=== PATIENT | male | born 1950 | race African-American/Black ===

== ENCOUNTER 2020-02-04 20:22 | IRF | payer MEDICARE, OTHER, SELFPAY ==
--- NOTE | ~2020-02-04 | CT_ITS ---
EXAMINATION: CT brain wo con DATE: 02/08/2020 09:19 INDICATION: Intracerebral hemorrhage. Stroke. TECHNIQUE: Computed tomography (CT) of the head was performed without intravenous contrast. The mA wa s adjusted according to patient size. Iterative reconstruction technique was employed. The dose-lengt h product was 681.00 mGy-cm. COMPARISON: None FINDINGS: There is a 2.0 cm hyperdense mass in right occipital lobe with surrounding vasogenic edema. There is no acute ischemic infarct. The ventricles are normal in size. There is an old blowout fract ure of medial wall of right orbit. There are old fracture deformities of the nasal bones. The mastoid air cells are normal. IMPRESSION: 1. Hyperdense mass in right occipital lobe, most likely an intraparenchymal hematoma. Reviewed, dictated and finalized at location A. IMPRESSION: 1. Hyperdense mass in right occipital lobe, most likely an intraparenchymal hem atoma.
[2020-02-04 20:20] VITALS: BP 137/70; PULSE 65; RESP 20; TEMP 36.4; O2SAT 100; BMI 43.4
[2020-02-04 20:49] LABS: Glucose Point of Care 170 (65-105)
--- NOTE | 2020-02-04 20:50 | ADMGEN ---
This patient, Hai Lemus, was admitted to [facility] Room 224-02 at 20:20. Patient/family oriented to hospital policies and general routines including ID bracelet, bed and alarms, visiting hours, pain management, procedures, bathroom and other care routines, personal items, smoking policy, room service/diet, and visiting hours. Valuables list has been completed. Information on how to activate the Rapid Response Team has been discussed. Patient/Family are encouraged to report perceived risks to care and to ask questions if they do not understand what they are told or what they should do.
[2020-02-04 22:00] VITALS: BP 142/70; PULSE 70; RESP 20; TEMP 36.5; O2SAT 99
[2020-02-05] VITALS (8 sets, daily range): BP systolic 106–129; BP diastolic 57–76; PULSE 63–72; RESP 18–20; TEMP 36.4–36.6; O2SAT 97–100; BMI 43.4
[2020-02-05 05:12] LABS: Basophils Absolute Auto 0.1 K/mm3 (0.0-0.1); Basophils Percent Auto 0.6 % (0.2-1.2); Eosinophils Absolute Auto 0.2 K/mm3 (0-0.3); Eosinophils Percent Auto 1.8 % (0-4.4); Hematocrit 34.5 % (42.0-52.0); Hemoglobin 11.4 g/dL (14.0-18.0); Immature Granulocyte Absolute 0.04 K/mm3 (0.00-0.031); Immature Granulocyte Percent A 0.5 % (0-0.5); Lymphocytes Absolute Auto 3.02 K/mm3 (0.9-3.2); Mean Corpuscular Hemoglobin 31.7 pg (26-34); Mean Corpuscular Volume 95.8 fl (80-100); Mean Platelet Volume 9.5 fl (7.4-10.4); Monocytes Absolute Auto 0.8 K/mm3 (0.1-0.6); Monocytes Percent Auto 9.2 % (2.6-8.5); Neutrophils Absolute Auto 4.2 K/mm3 (1.3-6.7); Neutrophils Percent Auto 50.9 % (45.5-73.1); Platelet Count Result 253 k/mm3 (150-375); Red Cell Distribution Width 12.1 % (11.5-14.5); White Blood Count 8.2 K/mm3 (4.5-10.0)
[2020-02-05 05:21] LABS: Hemoglobin A1C 5.8 % (<5.7)
[2020-02-05 05:23] LABS: Anion Gap 7 mmol/L (8-16); Blood Urea Nitrogen 22 mg/dL (9-20); Calcium 9.4 mg/dL (8.4-10.2); Carbon Dioxide 25 mmol/L (22-30); Chloride 104 mmol/L (98-107); Cholesterol 159 mg/dL (0-200); Estimated CRCL calculation 83 ml/min; Estimated Glomerular Filt Rate > 60; Glucose 131 mg/dL (75-110); HDL Direct 43 mg/dL; Potassium 4.3 mmol/L (3.4-5.0); Sodium 136 mmol/L (137-145); Triglycerides 110 mg/dL (<150)
[2020-02-05 05:34] LABS: LDL Cholesterol Direct 81 mg/dL
[2020-02-05 07:31] LABS: Glucose Point of Care 145 (65-105)
[2020-02-05] MEDS: ATORVASTATIN 40 MG TABLET PO (08:48)
[2020-02-05] MEDS: metFORMIN HCL 500 MG TABLET 1000 MG PO ×2 (08:48→18:50)
[2020-02-05] MEDS: ASPIRIN 325 MG TABLET PO (08:48)
[2020-02-05] MEDS: COLCHICINE 0.6 MG TABLET PO (08:49)
[2020-02-05] MEDS: FEBUXOSTAT 40 MG TABLET PO (08:49)
[2020-02-05] MEDS: lisinopriL 20 MG TABLET PO (08:50)
[2020-02-05] MEDS: SENNOSIDES 8.6 MG TABLET PO ×2 (08:50→18:50)
[2020-02-05] MEDS: DICLOFENAC SODIUM 1% 100 GM GEL (*BKC) 1 APPLIC TOPICAL ×3 (08:51→18:53)
[2020-02-05] MEDS: CHOLECALCIFEROL 1,000 UNIT TABLET 2000 UNITS PO (08:53)
[2020-02-05] MEDS: IPRATROPIUM BR 0.02% INH SOLN 0.5 MG/2.5 ML VIAL INHALATION ×2 (10:17→21:35)
--- NOTE | 2020-02-05 10:54 | WPDREHABHP ---
H&P: HPI History of Present Illness Date/Time: dictating the admission history and physical examination on Mr. Allan Valles patient's primary rehab diagnosis is a stroke with etiological diagnosis of right occipital lobe hemorrhage patient was seen [id number] on 04 of February 8:10 a.m. history and physical examination 69 years old male with past medical history of bilateral lower extremity DVT and PE, diabetes mellitus type 2 chronic obstructive pulmonary disease doubt an arthritis presented 2 [facility] on February 19, 2020 for evaluation of 2 day history of blurred vision and right supra orbital headache 10/10 is starting around 6:00 a.m. on the day of presentation and continue to worsen throughout the morning EMS transported the patient to the ER and route the patient's blood pressure was elevated to 182/89 with no history of hypertension CT of the head revealed 2.1cm right occipital intraparenchymal hemorrhage INR was 2.4 he was given 2units of fresh frozen plasma and vitamin K 5 mg intravenously x2 he was transferred to [facility] for further evaluation neurology was consulted he was started on lisinopril and continued on home medications: January 31, 2020 an IVC filter was placed as patient will not be able to be anticoagulated due to the brain bleed. He passed his bedside swallowing test and was placed on a regular consistency diabetic diet. TTE showed mild apical anterolateral hypokinesis and mild left atrial enlargement ejection fraction 68% brain MRI revealed a stable right occipital intraparenchymal bleed without abnormal vascularity of follow-up MRI is to be repeated at the resolution of hematoma hematology was consulted due to the patient's 3 prior unprovoked clotting events most recently in 2018 hematology recommended keeping the patient on indefinite anticoagulation therapy there is Eliquis 2.5 mg twice a day the old Flick recommended removing the IVC filter after anticoagulation has been restarted due to the risk of further thrombus formation a loop recorder will be placed prior to discharge patient is awake alert oriented x4 physical examination continues to reveal left-sided weakness decreased gross motor control impaired balance he was discharged to the rehab on subcutaneous heparin for DVT prophylaxis the patient has no travel outside the [place] or head contact with someone who is who is ill that his travel outside the [place] the patient has no travel to an area of the [place] there is experiencing no transmission of the Coronavirus and has not had close personal contact with anyone that has the patient does not have fever is not experiencing lower respiratory illness symptoms that therapy was initiated at the acute care facility and the patient was transferred to [facility] from [facility] on February 04, 2020 surgery or falls patient has had no major surgeries in the 100 days prior to admission and has had no falls in the past year patient has had no falls with the injury in the past year 10:54 past medical history consistent with arthritis COPD diabetic hyperosmolar nonketotic state Andres go pulmonary embolus diabetes mellitus type 2 dyslipidemia thrombophilia and morbid obesity past surgical history none social history former smoker quit 2 years ago with drinking 13 years ago no illicit drug use the patient lives in a 2 story house with his roommate patient is 5 steps to enter in 20 stairs between the 1st and 2nd floor the patient was completely independent Viviane with no assistive device family history is positive for the stroke x2 in the father and myocardial infarctions in the mother prior level of function eating was independent oral care was independent toileting hygiene was independent showering breathing was independent upper body was independent and lower body with independent for Viera was independent reporting left and right was independent sitting to lying was independent lying to sitting with independent [id number] indepe
[2020-02-05 11:52] LABS: Glucose Point of Care 121 (65-105)
--- NOTE | 2020-02-05 15:30 | PCCCNOTE ---
On 02/05/20, the student, [Hector Lovell ], provided care and completed [facility] documentation on this patient. I have reviewed the student's documentation and agree with the findings.
--- NOTE | 2020-02-05 15:41 | RPD ---
INDIVIDUALIZED PLAN OF CARE FOR Hai Lemus Brief Synthesis of Pre-Admission Screen, Post-Admission Evaluation and Therapy Evaluations: The patient presents to rehab with a right occipital lobe hemorrhage. Comorbidities include hypertension, anemia, hyponatremia, right knee osteoarthritis with pain, diabetes mellitus with hyperglycemia, dyslipidemia, thrombophilia, morbid obesity, chronic obstructive pulmonary disease, and gout. The complexity of the patient's medical management, nursing, and therapy needs require an inpatient rehab hospital stay with a physician-led interdisciplinary team approach. The patient?s needs will be best met in an intensive program vs. at a lower level of care. The patient requires physician services for neurology services, coordination of care, and medical oversight with monitoring and treatment of new hypertension, diabetes, coagulopathy, monitoring for adverse reactions to new medications, monitoring for infection, and pain control. The patient requires nursing services for frequent neuro checks, anticoagulation therapy, medication management and education, pressure relief and skin care management, monitoring of labs, diabetes management and education, and fall/safety precautions. Deficits include:ADLs, Balance, Cognition, Endurance, Family Training/Education, Mobility, Pain Management, ROM, Safety, Speech, Strength, and Transfers Machinist Apprentice Wood/Case Management for: Discharge Planning and Patient/Family Counseling Physical Therapy: 5 days per week for 75 minutes. Treatments may include: Therapeutic Exercise, Gait Training, Neuromuscular Re-education, Transfer Training, Community Reintegration, Bed Mobility, Patient/Family Education, Wheelchair Mobility Group Therapy/Concurrent Therapy Rationales: -Improve attention span during functional activities in a distracted environment. -Enhance problem solving and/or adequate judgment skills during functional activities in a distracted environment. -Promote increased safety awareness in a distracted environment to reduce fall risk with functional tasks, transfers, and ambulation to allow a more safe, self-sufficient return to the home environment. -Improve dynamic balance skills to promote safety and independence with functional activities in a distracted environment for maximum gain. Occupational Therapy: 5 days per week for 75 minutes. Treatments may include: Therapeutic Exercise, Therapeutic Activity, Cognitive Training, Self-Care Transfer Training, Community Reintegration, Home Management, Patient/Family Education, Wheelchair Mobility Training, Energy Conservation Training Group Therapy/Concurrent Therapy Rationales: -Allow therapist to observe and teach generalization and carry-over of skills learned in individual therapy. -Enhance problem solving and sequencing skills during therapeutic activities in a distracted environment. -Promote increased safety awareness in a realistic setting to reduce fall risk with functional tasks due to visual and verbal distractions. -Increase functional level with ADLs, ADL transfers and use of adaptive equipment through therapeutic activities with others while promoting safety to allow a more safe, self-sufficient return home. Speech Therapy: 5 days per week for 30 minutes. Treatments may include: Dysphasia Therapy, Speech/Language/Communication Therapy, Cognitive Training, Patient/Family Education Group Therapy/Concurrent Therapy - Rationale: -Allow therapist to observe and teach generalization and carry-over of skills learned in individual therapy. -Improve comprehension skills with complex or abstract ideas through discussion in a realistic setting. -Enhance problem solving skills with complex issues during activities in a distracted environment. -Promote increased memory skills and concentration in a distracted environment for a safe transition home. -Improve attention and focus with language/communication skills in a realistic and supportive therape
[2020-02-05 19:13] LABS: Glucose Point of Care 211 (65-105)
[2020-02-05 21:43] LABS: Glucose Point of Care 131 (65-105)
[2020-02-06 05:29] LABS: Glucose Point of Care 136 (65-105)
[2020-02-06 06:00] VITALS: BP 129/88; PULSE 59; RESP 18; TEMP 36.1; O2SAT 97
[2020-02-06] MEDS: metFORMIN HCL 500 MG TABLET 1000 MG PO ×2 (08:00→17:00)
[2020-02-06] MEDS: DICLOFENAC SODIUM 1% 100 GM GEL (*BKC) 1 APPLIC TOPICAL ×2 (08:00→12:20)
[2020-02-06] MEDS: CHOLECALCIFEROL 1,000 UNIT TABLET 2000 UNITS PO (09:00)
[2020-02-06] MEDS: ASPIRIN 325 MG TABLET PO (09:23)
[2020-02-06] MEDS: lisinopriL 20 MG TABLET PO (09:23)
[2020-02-06] MEDS: ATORVASTATIN 40 MG TABLET PO (09:23)
[2020-02-06] MEDS: COLCHICINE 0.6 MG TABLET PO (09:23)
[2020-02-06] MEDS: FEBUXOSTAT 40 MG TABLET PO (09:24)
[2020-02-06] MEDS: SENNOSIDES 8.6 MG TABLET PO ×2 (09:24→17:00)
[2020-02-06] MEDS: IPRATROPIUM BR 0.02% INH SOLN 0.5 MG/2.5 ML VIAL INHALATION ×2 (09:30→20:43)
[2020-02-06 09:31] VITALS: O2SAT 96
[2020-02-06 09:32] VITALS: PULSE 68; RESP 18
[2020-02-06 12:22] LABS: Glucose Point of Care 108 (65-105)
[2020-02-06 14:00] VITALS: BP 135/60; PULSE 66; RESP 16; TEMP 36.1; O2SAT 97
[2020-02-06 17:17] LABS: Glucose Point of Care 88 (65-105)
[2020-02-06 20:43] VITALS: PULSE 65; RESP 18; O2SAT 98
--- NOTE | 2020-02-06 20:58 | PC.NURSE ---
spoke with Dr. Fuentes office and nurse from [place] both making sure follow up head CT is ordered for sunday, order was placed with Dr. Bradshaw's ok, . phone number is [phone], I spoke with Emma at the office. Will need to follow up after CT is done to confirm where films should be sent
[2020-02-06 21:52] VITALS: BP 123/79; PULSE 69; RESP 18; TEMP 35.6; O2SAT 99
[2020-02-07] VITALS (8 sets, daily range): BP systolic 111–142; BP diastolic 55–59; PULSE 60–109; RESP 18–20; TEMP 35.8–36.8; O2SAT 97–100
[2020-02-07 06:50] LABS: Glucose Point of Care 104 (65-105)
[2020-02-07] MEDS: IPRATROPIUM BR 0.02% INH SOLN 0.5 MG/2.5 ML VIAL INHALATION ×2 (09:10→20:28)
[2020-02-07] MEDS: LIDOCAINE 5% PATCH 1 PATCH TRANSDERM (09:17)
[2020-02-07] MEDS: ASPIRIN 325 MG TABLET PO (09:18)
[2020-02-07] MEDS: metFORMIN HCL 500 MG TABLET 1000 MG PO ×2 (09:18→17:51)
[2020-02-07] MEDS: lisinopriL 20 MG TABLET PO (09:19)
[2020-02-07] MEDS: ATORVASTATIN 40 MG TABLET PO (09:19)
[2020-02-07] MEDS: COLCHICINE 0.6 MG TABLET PO (09:19)
[2020-02-07] MEDS: FEBUXOSTAT 40 MG TABLET PO (09:19)
[2020-02-07] MEDS: CHOLECALCIFEROL 1,000 UNIT TABLET 2000 UNITS PO (09:19)
[2020-02-07] MEDS: SENNOSIDES 8.6 MG TABLET PO ×2 (09:20→17:51)
[2020-02-07 12:05] LABS: Glucose Point of Care 97 (65-105)
--- NOTE | 2020-02-07 13:53 | WPDNEURORHBP ---
Subjective Date/time seen: 02/07/20 13:53 69 years old admitted to the rehab floor with a right occipital hemorrhage and 80 [place] to the history of bilateral lower extremity DVT and pulmonary emboli requiring warfarin in 2017 also history of diabetes mellitus type 2 chronic obstructive pulmonary disease gout and arthritis Review of Systems Review of Systems: All systems reviewed & are unremarkable except as noted in HPI and below Functional Status Ambulation Ability Ability to Ambulate 10 Feet: Standby Assistance Ability to Ambulate 50 Feet With 2 Turns: Contact Guard Ability to Ambulate 150 Feet: Contact Guard Ambulation Assistive Devices: Walker, Wheeled Transfers Ability Ability to Transfer In/Out of Chair: Standby Assistance Exam Narrative: Exam Narrative: examination today revealed him to be awake alert cooperative in comfortable in no acute distress ear nose throat examination normal neck is supple with no cervical bruits or thyromegaly no lymphadenopathy heart regular with no murmur lungs clear to auscultation with no crepitation abdomen is soft with normal bowel sounds neurological examination revealed him to be left hemiparetic with hyperreflexia extremities are normal and his psych examination is grossly normal Objective Data Vital Signs Vital Signs: Vital Signs - 24 hr 02/06/20 14:00 02/06/20 20:43 02/06/20 21:52 Temperature 36.1 C L 35.6 C L Pulse Rate 66 65 69 Respiratory Rate 16 18 18 Blood Pressure 135/60 123/79 Pulse Oximetry 97 98 99 02/07/20 05:54 02/07/20 09:10 02/07/20 09:20 Temperature 35.8 C L Pulse Rate 60 68 68 Respiratory Rate 18 18 18 Blood Pressure 111/55 L Pulse Oximetry 100 Intake/Output Intake/Output: Intake & Output 02/04/20 02/05/20 02/06/20 02/07/20 23:59 23:59 23:59 23:59 Intake Total 720 960 480 Balance 720 960 480 Meds/Results Medications: Active Medications Generic Name Dose Route Start Last Admin Trade Name Freq PRN Reason Stop Dose Admin Acetaminophen 650 mg 02/04/20 22:43 Tylenol Tablet PO Q4H PRN Fever Or Pain Aspirin 325 mg 02/05/20 09:00 02/07/20 09:18 Aspirin PO 325 mg DAILY [facility] Administration Atorvastatin Calcium 40 mg 02/05/20 09:00 02/07/20 09:19 Lipitor PO 40 mg DAILY [facility] Administration Colchicine 0.6 mg 02/05/20 09:00 02/07/20 09:19 Colchicine Po PO 0.6 mg DAILY [facility] Administration Febuxostat 40 mg 02/05/20 09:00 02/07/20 09:19 Uloric PO 03/06/20 09:01 40 mg DAILY [facility] Administration Dextrose 1,000 mls @ 100 mls/hr 02/04/20 22:38 Dextrose 5% 1,000 Ml IVPB PRN PRN Hypoglycemia Protocol Insulin Aspart 2 - 5 units 02/05/20 08:00 02/07/20 12:09 Novolog SUB-Q Not Given TIDWM [facility] Protocol Ipratropium [place] 0.5 mg 02/05/20 20:00 02/07/20 09:10 Atrovent Neb INHALATION 0.5 mg Q12HRT [facility] Administration Lidocaine 1 patch 02/07/20 09:00 02/07/20 09:17 Lidoderm TRANSDERM 1 patch DAILY [facility] Administration Lisinopril 20 mg 02/05/20 09:00 02/07/20 09:19 Prinivil PO 20 mg DAILY [facility] Administration Metformin HCl 1,000 mg 02/05/20 08:00 02/07/20 09:18 Glucophage PO 1,000 mg BIDWM [facility] Administration Senna 8.6 mg 02/05/20 09:00 02/07/20 09:20 Senokot Tablet PO 8.6 mg BID [facility] Administration Vitamin D 2,000 unit 02/05/20 09:00 02/07/20 09:19 Vitamin D PO 2,000 units DAILY CONCH[facility] Administration Labs Labs: Laboratory Results - last 24 hr 02/06/20 02/07/20 02/07/20 17:14 06:28 12:03 POC Capillary Glucose 88 104 97 Progress Note: A&P Assessment and Plan (1) Arthritis due to gout: Code(s): M10.9 - Gout, unspecified Status: Acute (2) Chronic obstructive pulmonary disease: Code(s): J44.9 - Chronic obstructive pulmonary disease, unspecified Status: Acute (3) Diabetes mellitus type 2 in nonobese: Code(s): E11.9 - Type 2 diabetes bertha
[2020-02-07] MEDS: MAG HYDROX/AL HYDROX/SIMETH 30 ML UDC PO (21:40)
[2020-02-08] VITALS (8 sets, daily range): BP systolic 109–148; BP diastolic 51–82; PULSE 57–84; RESP 18–20; TEMP 35.6–36.8; O2SAT 91–98
[2020-02-08 06:46] LABS: Glucose Point of Care 122 (65-105)
[2020-02-08] MEDS: metFORMIN HCL 500 MG TABLET 1000 MG PO ×2 (08:41→17:28)
[2020-02-08] MEDS: CHOLECALCIFEROL 1,000 UNIT TABLET 2000 UNITS PO (08:41)
[2020-02-08] MEDS: ASPIRIN 325 MG TABLET PO (08:41)
[2020-02-08] MEDS: ATORVASTATIN 40 MG TABLET PO (08:41)
[2020-02-08] MEDS: COLCHICINE 0.6 MG TABLET PO (08:41)
[2020-02-08] MEDS: FEBUXOSTAT 40 MG TABLET PO (08:42)
[2020-02-08] MEDS: SENNOSIDES 8.6 MG TABLET PO (08:42)
[2020-02-08] MEDS: LIDOCAINE 5% PATCH 1 PATCH TRANSDERM (08:42)
[2020-02-08] MEDS: lisinopriL 20 MG TABLET PO (08:42)
[2020-02-08] MEDS: IPRATROPIUM BR 0.02% INH SOLN 0.5 MG/2.5 ML VIAL INHALATION ×2 (09:02→18:59)
[2020-02-09] VITALS (9 sets, daily range): BP systolic 113–128; BP diastolic 56–68; PULSE 57–82; RESP 18–20; TEMP 36.4–36.8; O2SAT 94–100
[2020-02-09 06:12] LABS: Glucose Point of Care 105 (65-105)
[2020-02-09] MEDS: LIDOCAINE 5% PATCH 1 PATCH TRANSDERM (09:04)
[2020-02-09] MEDS: metFORMIN HCL 500 MG TABLET 1000 MG PO ×2 (09:04→16:05)
[2020-02-09] MEDS: CHOLECALCIFEROL 1,000 UNIT TABLET 2000 UNITS PO (09:05)
[2020-02-09] MEDS: ATORVASTATIN 40 MG TABLET PO (09:05)
[2020-02-09] MEDS: ASPIRIN 325 MG TABLET PO (09:05)
[2020-02-09] MEDS: COLCHICINE 0.6 MG TABLET PO (09:06)
[2020-02-09] MEDS: FEBUXOSTAT 40 MG TABLET PO (09:06)
[2020-02-09] MEDS: lisinopriL 20 MG TABLET PO (09:06)
[2020-02-09] MEDS: IPRATROPIUM BR 0.02% INH SOLN 0.5 MG/2.5 ML VIAL INHALATION ×2 (09:19→20:29)
--- NOTE | 2020-02-09 12:59 | PCOTNOTE ---
Will Lemusradha was evaluated for a safety with tub transfer and bathing by this occupational therapist. He will benefit from use of a tub seat with back, grab bars, and hand held shower to improve independence and safety with bathing. The tub seat with back, grab bars, and hand held shower will resolve patient's bathing limitations. Patient is unable to tolerate standing for completion of shower due to impaired balance and endurance due to recent CVA complicated by h/o DM, HLD, gout, OA, COPD, and bilateral LE DVT with PE s/p IVC filter. The use of tub seat with back, grab bars, and hand held shower will allow patient to safely and independently complete tub transfer and bathing. I agree with and certify that the above recommendation is medically necessary. Referring Physician Date
--- NOTE | 2020-02-09 13:19 | WPDNEURORHBP ---
Subjective Date/time seen: 02/09/20 13:19 Interval history: this 69-year-old gentleman is here after having had the right-sided parieto-occipital hemorrhage the CT scan performed yesterday shows evidence of the hemorrhage with some edema however clinically the patient is doing remarkably well denies any headache nausea vomiting chest pain shortness of breath or any evidence of the more weakness which is increased than previously of course he does have some visual defect on the left side which is expected and mild weakness which is improving on the left side Review of Systems Review of Systems: All systems reviewed & are unremarkable except as noted in HPI and below Functional Status Ambulation Ability Ability to Ambulate 10 Feet: Independent Ability to Ambulate 50 Feet With 2 Turns: Independent Ability to Ambulate 150 Feet: Standby Assistance Ambulation Assistive Devices: Walker, Wheeled Transfers Ability Ability to Transfer In/Out of Chair: Independent Exam Const: General: comfortable and no acute distress HENMT: General nose exam: Normal nares present Mouth: Yes moist mucous membranes Eyes: General: appearance normal, both eyes and all related structures Other: left-sided visual field defect Neck: Neck: supple and no JVD Resp: Effort & Inspection: normal respiratory effort Auscultation: clear to auscultation bilaterally Cardio: Rate: regular rate Rhythm: regular rhythm GI: GI Palp: Yes Soft to palpation Auscultation: normal bowel sounds Skin: General skin exam: normal color and no rashes or lesions noted Neuro: Other: patient is awake alert well oriented time place and person perfectly lucid with left-sided visual field defect and improving left-sided weakness Extrem: General: normal to inspection Psych: Mental Status: mental status grossly normal Objective Data Vital Signs Vital Signs: Vital Signs - 24 hr 02/08/20 14:00 02/08/20 18:59 02/08/20 19:01 Temperature 36.6 C Pulse Rate 69 78 Respiratory Rate 18 18 Blood Pressure 148/82 H Pulse Oximetry 98 94 02/08/20 19:06 02/08/20 22:00 02/09/20 06:00 Temperature 36.8 C 36.8 C Pulse Rate 80 64 60 Respiratory Rate 18 20 20 Blood Pressure 116/62 113/56 L Pulse Oximetry 98 96 02/09/20 08:50 02/09/20 09:15 02/09/20 09:21 Temperature Pulse Rate 82 82 Respiratory Rate 18 18 Blood Pressure Pulse Oximetry 94 94 02/09/20 09:25 Temperature Pulse Rate 82 Respiratory Rate 18 Blood Pressure Pulse Oximetry Intake/Output Intake/Output: Intake & Output 02/06/20 02/07/20 02/08/20 02/09/20 23:59 23:59 23:59 23:59 Intake Total 960 720 600 480 Balance 960 720 600 480 Meds/Results Medications: Active Medications Generic Name Dose Route Start Last Admin Trade Name Freq PRN Reason Stop Dose Admin Acetaminophen 650 mg 02/04/20 22:43 Tylenol Tablet PO Q4H PRN Fever Or Pain Al Hydrox/Mg Hydrox/Simethicone 30 ml 02/07/20 21:23 02/07/20 21:40 Mylanta PO 30 ml Q6H PRN Administration Indigestion Aspirin 325 mg 02/05/20 09:00 02/09/20 09:05 Aspirin PO 325 mg DAILY [facility]CH[facility] Administration Atorvastatin Calcium 40 mg 02/05/20 09:00 02/09/20 09:05 Lipitor PO 40 mg DAILY [facility] Administration Colchicine 0.6 mg 02/05/20 09:00 02/09/20 09:06 Colchicine Po PO 0.6 mg DAILY [facility] Administration Febuxostat 40 mg 02/05/20 09:00 02/09/20 09:06 Uloric PO 03/06/20 09:01 40 mg DAILY [facility] Administration Dextrose 1,000 mls @ 100 mls/hr 02/04/20 22:38 Dextrose 5% 1,000 Ml IVPB PRN PRN Hypoglycemia Protocol Ipratropium [place] 0.5 mg 02/05/20 20:00 02/09/20 09:19 Atrovent Neb INHALATION 0.5 mg Q12HRT [facility] Administration Lidocaine 1 patch 02/07/20 09:00 02/09/20 09:04 Lidoderm TRANSDERM 1 patch DAILY [facility] Administration Lisinopril 20 mg 02/05/20 09:00 02/09/20 09:06 Prinivil PO 20 mg DAILY CONCHIS Administratio
--- NOTE | 2020-02-09 21:57 | PC.NURSE ---
Addendum entered by Kenzie Tilley RN 02/10/20 10:58: Contacted [facility] for CT comparison based on their request for repeat CT scan on 02/07. Apparently patient had CT scan at [place] [facility] and was seen by Dr. Deja Tsai, neurologist branch mechanic. He was later admitted to the [facility] at [phone] for treatment. I stated that in order to restart his Eliquis (per Tr instructions) their CT scan and our CT scan would need to be compared for differences/similarities by Dr. Liu, per her request. Tr stated they would call me to inform me how Dr. Liu would like to collaborate on this matter to finalize their instructions regarding restarting Eliquis. Original Note: Contacted [facility] and
[2020-02-10] VITALS (8 sets, daily range): BP systolic 126–136; BP diastolic 71–79; PULSE 66–76; RESP 18–22; TEMP 36.2–36.5; O2SAT 94–99
[2020-02-10 06:39] LABS: Glucose Point of Care 108 (65-105)
[2020-02-10] MEDS: LIDOCAINE 5% PATCH 1 PATCH TRANSDERM (08:17)
[2020-02-10] MEDS: metFORMIN HCL 500 MG TABLET 1000 MG PO ×2 (08:17→16:35)
[2020-02-10] MEDS: CHOLECALCIFEROL 1,000 UNIT TABLET 2000 UNITS PO (08:18)
[2020-02-10] MEDS: COLCHICINE 0.6 MG TABLET PO (08:18)
[2020-02-10] MEDS: ASPIRIN 325 MG TABLET PO (08:18)
[2020-02-10] MEDS: ATORVASTATIN 40 MG TABLET PO (08:18)
[2020-02-10] MEDS: SENNOSIDES 8.6 MG TABLET PO (08:19)
[2020-02-10] MEDS: lisinopriL 20 MG TABLET PO (08:19)
[2020-02-10] MEDS: FEBUXOSTAT 40 MG TABLET PO (08:19)
--- NOTE | 2020-02-10 10:43 | PCPTNOTE ---
Hai Lemus was evaluated for a wheeled walker on 02/10/2020 by this physical therapist. The wheeled walker will resolve patient's mobility limitations and will be used for ADL's within the home. The patient can safely use the wheeled walker. ?The wheeled walker will resolve the patient?s mobility deficits, including transfers/gait/ADL's. Maribeth Cespedes PT
--- NOTE | 2020-02-10 11:03 | PC.NURSE ---
Called [facility] at [phone] regarding information/update on patient's CT scan from 02/07. [place] stated there was a note to Dr. Zuleta to review information and to contact us with instructions on how to proceed regarding restarting Eliquis.
--- NOTE | 2020-02-10 13:06 | WPDNEURORHBP ---
Subjective Date/time seen: 02/10/20 13:06 Interval history: this 69-year-old gentleman is here after having had the right parieto-occipital intraparenchymal am hemorrhage he looks great in spite of the fact that he did have the the hemorrhage in the brain denies any headache nausea vomiting chest pain or shortness of breath apparently it was a combination of Coumadin therapy for his DVT in the legs and the lungs as he described for which the Coumadin is used and recommendation from the tertiary care facility is to start him on Eliquis and the next day to the recent CT scan does show evidence of the hematoma which probably is the same at least looking at the by clinical examination Review of Systems Review of Systems: All systems reviewed & are unremarkable except as noted in HPI and below Functional Status Ambulation Ability Ability to Ambulate 10 Feet: Independent Ability to Ambulate 50 Feet With 2 Turns: Independent Ability to Ambulate 150 Feet: Independent Ambulation Assistive Devices: Walker, Wheeled Transfers Ability Ability to Transfer In/Out of Chair: Independent Exam Const: General: comfortable and no acute distress HENMT: General nose exam: Normal nares present Mouth: Yes moist mucous membranes Eyes: General: appearance normal, both eyes and all related structures Neck: Neck: supple and no JVD Resp: Effort & Inspection: normal respiratory effort Auscultation: clear to auscultation bilaterally Cardio: Rate: regular rate Rhythm: regular rhythm GI: GI Palp: Yes Soft to palpation Auscultation: normal bowel sounds Skin: General skin exam: normal color and no rashes or lesions noted Neuro: Other: patient is awake alert well oriented not in distress does have a left-sided visual field defect and left-sided weakness and higher level balance problem but considering that he had the intracranial hemorrhage is doing very well still needing assistance in the activities of daily living Extrem: General: normal to inspection Psych: Mental Status: mental status grossly normal Objective Data Vital Signs Vital Signs: Vital Signs - 24 hr 02/09/20 14:00 02/09/20 20:29 02/09/20 20:30 Temperature 36.4 C Pulse Rate 68 78 Respiratory Rate 20 18 Blood Pressure 128/58 L Pulse Oximetry 100 96 02/09/20 20:40 02/10/20 06:00 02/10/20 08:22 Temperature 36.4 C L 36.5 C Pulse Rate 57 L 73 72 Respiratory Rate 18 22 H 22 H Blood Pressure 123/68 126/77 Pulse Oximetry 98 96 96 02/10/20 09:15 02/10/20 09:44 Temperature Pulse Rate 70 76 Respiratory Rate 20 20 Blood Pressure Pulse Oximetry Intake/Output Intake/Output: Intake & Output 02/07/20 02/08/20 02/09/20 02/10/20 23:59 23:59 23:59 23:59 Intake Total 720 600 720 480 Balance 720 600 720 480 Meds/Results Medications: Active Medications Generic Name Dose Route Start Last Admin Trade Name Freq PRN Reason Stop Dose Admin Acetaminophen 650 mg 02/04/20 22:43 Tylenol Tablet PO Q4H PRN Fever Or Pain Al Hydrox/Mg Hydrox/Simethicone 30 ml 02/07/20 21:23 02/07/20 21:40 Mylanta PO 30 ml Q6H PRN Administration Indigestion Aspirin 325 mg 02/05/20 09:00 02/10/20 08:18 Aspirin PO 325 mg DAILY [facility] Administration Atorvastatin Calcium 40 mg 02/05/20 09:00 02/10/20 08:18 Lipitor PO 40 mg DAILY [facility] Administration Colchicine 0.6 mg 02/05/20 09:00 02/10/20 08:18 Colchicine Po PO 0.6 mg DAILY [facility] Administration Febuxostat 40 mg 02/05/20 09:00 02/10/20 08:19 Uloric PO 03/06/20 09:01 40 mg DAILY [facility] Administration Dextrose 1,000 mls @ 100 mls/hr 02/04/20 22:38 Dextrose 5% 1,000 Ml IVPB PRN PRN Hypoglycemia Protocol Ipratropium [place] 0.5 mg 02/05/20 20:00 02/09/20 20:29 Atrovent Neb INHALATION 0.5 mg Q12HRT [facility] Administration Lidocaine 1 patch 02/07/20 09:00 02/10/20 08:17 Lidoderm TRANSDERM 1 patch DAILY [facility] Administration
[2020-02-10] MEDS: IPRATROPIUM BR 0.02% INH SOLN 0.5 MG/2.5 ML VIAL INHALATION ×2 (20:00→20:31)
[2020-02-11] VITALS (8 sets, daily range): BP systolic 105–132; BP diastolic 66–81; PULSE 57–78; RESP 16–22; TEMP 36.2–36.5; O2SAT 95–99
[2020-02-11 07:03] LABS: Glucose Point of Care 107 (65-105)
[2020-02-11] MEDS: IPRATROPIUM BR 0.02% INH SOLN 0.5 MG/2.5 ML VIAL INHALATION ×2 (08:19→21:03)
[2020-02-11] MEDS: ATORVASTATIN 40 MG TABLET PO (09:04)
[2020-02-11] MEDS: ASPIRIN 325 MG TABLET PO (09:04)
[2020-02-11] MEDS: metFORMIN HCL 500 MG TABLET 1000 MG PO ×2 (09:04→17:12)
[2020-02-11] MEDS: FEBUXOSTAT 40 MG TABLET PO (09:05)
[2020-02-11] MEDS: CHOLECALCIFEROL 1,000 UNIT TABLET 2000 UNITS PO (09:05)
[2020-02-11] MEDS: COLCHICINE 0.6 MG TABLET PO (09:05)
[2020-02-11] MEDS: lisinopriL 20 MG TABLET PO (09:05)
[2020-02-11] MEDS: LIDOCAINE 5% PATCH 1 PATCH TRANSDERM (09:06)
--- NOTE | 2020-02-11 12:52 | WPDNEURORHBP ---
Subjective Date/time seen: 02/11/20 12:52 Interval history: this 69-year-old is here status post a right-sided intracranial hemorrhage denies any headache nausea vomiting chest pain shortness of breath the patient was supposed to have been started on Eliquis and we will start it and will discontinue his aspirin he knows the risk in the benefits and making progress significant in over rehab program in fact clinically has never shown and a huge deficit from the intracranial hemorrhage he has had Review of Systems Review of Systems: All systems reviewed & are unremarkable except as noted in HPI and below Functional Status Ambulation Ability Ability to Ambulate 10 Feet: Independent Ability to Ambulate 50 Feet With 2 Turns: Independent Ability to Ambulate 150 Feet: Independent Ambulation Assistive Devices: Walker, Wheeled Transfers Ability Ability to Transfer In/Out of Chair: Independent Exam Const: General: comfortable and no acute distress HENMT: General nose exam: Normal nares present Mouth: Yes moist mucous membranes Eyes: General: appearance normal, both eyes and all related structures Neck: Neck: supple and no JVD Resp: Effort & Inspection: normal respiratory effort Auscultation: clear to auscultation bilaterally Cardio: Rate: regular rate Rhythm: regular rhythm GI: GI Palp: Yes Soft to palpation Auscultation: normal bowel sounds Skin: General skin exam: normal color and no rashes or lesions noted Neuro: Other: patient is awake alert well oriented has a subtle left-sided weakness needing assistance in the activities of daily living and also left-sided visual field defect which is stable or in fact has improved to a certain extent Extrem: General: normal to inspection Psych: Mental Status: mental status grossly normal Objective Data Vital Signs Vital Signs: Vital Signs - 24 hr 02/10/20 14:00 02/10/20 20:12 02/10/20 20:32 Temperature 36.2 C L 36.4 C Pulse Rate 66 75 74 Respiratory Rate 20 18 18 Blood Pressure 133/71 136/79 Pulse Oximetry 99 97 94 02/10/20 20:38 02/11/20 05:20 02/11/20 08:21 Temperature 36.4 C L Pulse Rate 66 57 L 72 Respiratory Rate 18 20 18 Blood Pressure 105/66 Pulse Oximetry 98 02/11/20 08:28 02/11/20 08:30 Temperature Pulse Rate 78 72 Respiratory Rate 18 Blood Pressure Pulse Oximetry 95 Intake/Output Intake/Output: Intake & Output 08/16/20 08/17/20 08/18/20 08/19/20 23:59 23:59 23:59 23:59 Intake Total 480 152 1061 240 Balance 016 931 5315 240 Meds/Results Medications: Active Medications Generic Name Dose Route Start Last Admin Trade Name Freq PRN Reason Stop Dose Admin Acetaminophen 650 mg 02/04/20 22:43 Tylenol Tablet PO Q4H PRN Fever Or Pain Al Hydrox/Mg Hydrox/Simethicone 30 ml 02/07/20 21:23 02/07/20 21:40 Mylanta PO 30 ml Q6H PRN Administration Indigestion Apixaban 2.5 mg 02/11/20 21:00 Eliquis PO Q12HR [facility] Atorvastatin Calcium 40 mg 02/05/20 09:00 02/11/20 09:04 Lipitor PO 40 mg DAILY [facility] Administration Colchicine 0.6 mg 02/05/20 09:00 02/11/20 09:05 Colchicine Po PO 0.6 mg DAILY [facility] Administration Febuxostat 40 mg 02/05/20 09:00 02/11/20 09:05 Uloric PO 03/06/20 09:01 40 mg DAILY [facility] Administration Dextrose 1,000 mls @ 100 mls/hr 02/04/20 22:38 Dextrose 5% 1,000 Ml IVPB PRN PRN Hypoglycemia Protocol Ipratropium [place] 0.5 mg 02/05/20 20:00 02/11/20 08:19 Atrovent Neb INHALATION 0.5 mg Q12HRT [facility] Administration Lidocaine 1 patch 02/07/20 09:00 02/11/20 09:06 Lidoderm TRANSDERM 1 patch DAILY [facility] Administration Lisinopril 20 mg 02/05/20 09:00 02/11/20 09:05 Prinivil PO 20 mg DAILY [facility] Administration Metformin HCl 1,000 mg 02/05/20 08:00 02/11/20 09:04 Glucophage PO 1,000 mg BIDWM [facility] Administration Senna 8.6 mg 02/08/20 17:30 02/10/20 08:19 Senokot Tablet PO 8.6
--- NOTE | 2020-02-11 17:13 | PC.NURSE ---
pt wanted only 500mg on the metformin and he states that what his doctor had decreased his dose to. I will call Dr. Mcduffie and let him know and possibly decrease if ordered.
[2020-02-11] MEDS: APIXABAN 2.5 MG TABLET PO (21:36)
[2020-02-12] VITALS (7 sets, daily range): BP systolic 102–123; BP diastolic 51–66; PULSE 64–70; RESP 12–18; TEMP 36.2–36.6; O2SAT 96–100
[2020-02-12 05:35] LABS: Basophils Absolute Auto 0.1 K/mm3 (0.0-0.1); Basophils Percent Auto 0.7 % (0.2-1.2); Eosinophils Absolute Auto 0.2 K/mm3 (0-0.3); Eosinophils Percent Auto 2.6 % (0-4.4); Hematocrit 35.2 % (42.0-52.0); Hemoglobin 11.7 g/dL (14.0-18.0); Immature Granulocyte Absolute 0.05 K/mm3 (0.00-0.031); Immature Granulocyte Percent A 0.6 % (0-0.5); Lymphocytes Absolute Auto 3.59 K/mm3 (0.9-3.2); Lymphocytes Percent Auto 44.3 % (18.3-44.2); Mean Corpuscular HGB Conc 33.2 g/dl (32-36); Mean Corpuscular Hemoglobin 31.9 pg (26-34); Mean Corpuscular Volume 95.9 fl (80-100); Mean Platelet Volume 9.1 fl (7.4-10.4); Monocytes Absolute Auto 0.8 K/mm3 (0.1-0.6); Monocytes Percent Auto 9.8 % (2.6-8.5); Neutrophils Absolute Auto 3.4 K/mm3 (1.3-6.7); Platelet Count Result 348 k/mm3 (150-375); Red Blood Count 3.67 M/mm3 (4.6-6.20); Red Cell Distribution Width 11.9 % (11.5-14.5); White Blood Count 8.1 K/mm3 (4.5-10.0)
[2020-02-12 05:49] LABS: Anion Gap 9 mmol/L (8-16); Blood Urea Nitrogen 21 mg/dL (9-20); Calcium 9.5 mg/dL (8.4-10.2); Carbon Dioxide 26 mmol/L (22-30); Chloride 101 mmol/L (98-107); Estimated CRCL calculation 83 ml/min; Estimated Glomerular Filt Rate > 60; Glucose 109 mg/dL (75-110); Potassium 4.1 mmol/L (3.4-5.0); Sodium 136 mmol/L (137-145)
[2020-02-12 07:02] LABS: Glucose Point of Care 161 (65-105)
[2020-02-12] MEDS: IPRATROPIUM BR 0.02% INH SOLN 0.5 MG/2.5 ML VIAL INHALATION ×2 (07:44→21:00)
[2020-02-12] MEDS: metFORMIN HCL 500 MG TABLET PO ×2 (09:17→17:25)
[2020-02-12] MEDS: LIDOCAINE 5% PATCH 1 PATCH TRANSDERM (09:18)
[2020-02-12] MEDS: ATORVASTATIN 40 MG TABLET PO (09:18)
[2020-02-12] MEDS: APIXABAN 2.5 MG TABLET PO ×2 (09:18→20:26)
[2020-02-12] MEDS: CHOLECALCIFEROL 1,000 UNIT TABLET 2000 UNITS PO (09:18)
[2020-02-12] MEDS: lisinopriL 20 MG TABLET PO (09:19)
[2020-02-12] MEDS: COLCHICINE 0.6 MG TABLET PO (09:19)
[2020-02-12] MEDS: FEBUXOSTAT 40 MG TABLET PO (09:19)
--- NOTE | 2020-02-12 13:00 | PCDIET ---
Nutrition Follow-Up Complete: Nutrition Diagnosis: Obesity related to excessive energy intake nursing home as evidenced by BMI of 43.5.. Nutrition Goal: Patient to consume 75% of meals or greater. Goal met. Patient consuming 100% of most meals on diabetic, carbohydrate controlled diet. Recommend long-term addition of heart healthy diet, as well. Last recorded weight is 141.5 kg. Recommend obtaining new weight. Bowel Motility: +BM today. Labs Reviewed: Hgb (11.7), Hct (35.2), Glu (161), Na (136) Meds Noted: Colchicine, Glucophage, Atrovent, Senna, Vitamin D Additional Notes: Glucophage dose adjusted. No documented skin breakdown. Will continue to monitor with same goal. Nutrition Monitoring and Evaluation: Follow up in 7 days.
[2020-02-13] VITALS (7 sets, daily range): BP systolic 109–135; BP diastolic 64–82; PULSE 63–77; RESP 16–18; TEMP 36.4–36.7; O2SAT 98–99
[2020-02-13 07:02] LABS: Glucose Point of Care 121 (65-105)
[2020-02-13] MEDS: metFORMIN HCL 500 MG TABLET PO ×2 (09:16→16:18)
[2020-02-13] MEDS: CHOLECALCIFEROL 1,000 UNIT TABLET 2000 UNITS PO (09:17)
[2020-02-13] MEDS: lisinopriL 20 MG TABLET PO (09:17)
[2020-02-13] MEDS: APIXABAN 2.5 MG TABLET PO ×2 (09:17→20:18)
[2020-02-13] MEDS: COLCHICINE 0.6 MG TABLET PO (09:17)
[2020-02-13] MEDS: FEBUXOSTAT 40 MG TABLET PO (09:17)
[2020-02-13] MEDS: ATORVASTATIN 40 MG TABLET PO (09:17)
[2020-02-13] MEDS: IPRATROPIUM BR 0.02% INH SOLN 0.5 MG/2.5 ML VIAL INHALATION ×2 (09:45→21:03)
[2020-02-13] MEDS: LIDOCAINE 5% PATCH 1 PATCH TRANSDERM (12:19)
--- NOTE | 2020-02-13 13:47 | PCCCNOTE ---
On 02/13/20, the student, [Hector Lovell ], provided care and completed [facility] documentation on this patient. I have reviewed the student's documentation and agree with the findings.
--- NOTE | 2020-02-13 14:34 | WPDNEURORHBP ---
Subjective Date/time seen: 69 years old admitted to the hospital with a right-sided intracranial hemorrhage in the rehab floor continuing on Eliquis without aspirin the review of systems is completely unremarkable except as noted in the admission history and physical [id number]/21/20 14:34 Functional Status Ambulation Ability Ability to Ambulate 10 Feet: Independent Ability to Ambulate 50 Feet With 2 Turns: Independent Ability to Ambulate 150 Feet: Independent Ambulation Assistive Devices: Walker, Wheeled Transfers Ability Ability to Transfer In/Out of Chair: Independent Exam Narrative: Exam Narrative: examination revealed him to be awake alert cooperative in no obvious acute distress ear nose throat examination is normal without any drainage from the nose or the mouth and the daughter general normal appearance of both eyes neck supple with no meningeal signs no cervical bruit heart regular with no murmur lungs clear to auscultation with no crepitations no rhonchi abdomen is soft with no organomegaly neurological is awake alert oriented has obvious left-sided weakness with left-sided visual field cut and psychologically normal Objective Data Vital Signs Vital Signs: Vital Signs - 24 hr 02/12/20 20:30 02/12/20 21:00 02/12/20 21:07 Temperature 36.6 C Pulse Rate 67 64 67 Respiratory Rate 18 18 18 Blood Pressure 110/59 L Pulse Oximetry 100 02/13/20 05:25 02/13/20 08:00 02/13/20 09:45 Temperature 36.6 C Pulse Rate 70 67 68 Respiratory Rate 18 18 18 Blood Pressure 109/66 Pulse Oximetry 98 98 02/13/20 09:54 Temperature Pulse Rate 67 Respiratory Rate 18 Blood Pressure Pulse Oximetry Intake/Output Intake/Output: Intake & Output 02/10/20 02/11/20 02/12/20 02/13/20 23:59 23:59 23:59 23:59 Intake Total 1440 720 960 600 Balance 1440 720 960 600 Meds/Results Medications: Active Medications Generic Name Dose Route Start Last Admin Trade Name Freq PRN Reason Stop Dose Admin Acetaminophen 650 mg 02/04/20 22:43 Tylenol Tablet PO Q4H PRN Fever Or Pain Al Hydrox/Mg Hydrox/Simethicone 30 ml 02/07/20 21:23 02/07/20 21:40 Mylanta PO 30 ml Q6H PRN Administration Indigestion Apixaban 2.5 mg 02/11/20 21:00 02/13/20 09:17 Eliquis PO 2.5 mg Q12HR [facility] Administration Atorvastatin Calcium 40 mg 02/05/20 09:00 02/13/20 09:17 Lipitor PO 40 mg DAILY [facility] Administration Colchicine 0.6 mg 02/05/20 09:00 02/13/20 09:17 Colchicine Po PO 0.6 mg DAILY [facility] Administration Febuxostat 40 mg 02/05/20 09:00 02/13/20 09:17 Uloric PO 03/06/20 09:01 40 mg DAILY [facility] Administration Dextrose 1,000 mls @ 100 mls/hr 02/04/20 22:38 Dextrose 5% 1,000 Ml IVPB PRN PRN Hypoglycemia Protocol Ipratropium [place] 0.5 mg 02/05/20 20:00 02/13/20 09:45 Atrovent Neb INHALATION 0.5 mg Q12HRT [facility] Administration Lidocaine 1 patch 02/07/20 09:00 02/13/20 12:19 Lidoderm TRANSDERM 1 patch DAILY [facility] Administration Lisinopril 20 mg 02/05/20 09:00 02/13/20 09:17 Prinivil PO 20 mg DAILY [facility] Administration Metformin HCl 500 mg 02/12/20 08:00 02/13/20 09:16 Glucophage PO 500 mg BIDWM [facility] Administration Senna 8.6 mg 02/08/20 17:30 02/10/20 08:19 Senokot Tablet PO 8.6 mg BID PRN Administration Constipation Vitamin D 2,000 unit 02/05/20 09:00 02/13/20 09:17 Vitamin D PO 2,000 units DAILY [facility] Administration Radiology Results: ITS Impressions Head CT 02/08/20 09:21 IMPRESSION: 1. Hyperdense mass in right occipital lobe, most likely an intraparenchymal hematoma. 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
--- NOTE | 2020-02-13 15:30 | PCCCNOTE ---
On 02/13/20, the student, [Hector Lovell ], provided care and completed [facility] documentation on this patient. I have reviewed the student's documentation and agree with the findings.
[2020-02-14] VITALS (7 sets, daily range): BP systolic 121–138; BP diastolic 66–74; PULSE 60–76; RESP 16–18; TEMP 36.2–36.6; O2SAT 92–100
[2020-02-14 06:26] LABS: Glucose Point of Care 120 (65-105)
[2020-02-14] MEDS: IPRATROPIUM BR 0.02% INH SOLN 0.5 MG/2.5 ML VIAL INHALATION ×2 (08:00→21:48)
[2020-02-14] MEDS: ATORVASTATIN 40 MG TABLET PO (08:35)
[2020-02-14] MEDS: metFORMIN HCL 500 MG TABLET PO ×2 (08:35→16:53)
[2020-02-14] MEDS: CHOLECALCIFEROL 1,000 UNIT TABLET 2000 UNITS PO (08:35)
[2020-02-14] MEDS: LIDOCAINE 5% PATCH 1 PATCH TRANSDERM (08:35)
[2020-02-14] MEDS: FEBUXOSTAT 40 MG TABLET PO (08:35)
[2020-02-14] MEDS: APIXABAN 2.5 MG TABLET PO ×2 (08:35→20:19)
[2020-02-14] MEDS: COLCHICINE 0.6 MG TABLET PO (08:35)
[2020-02-14] MEDS: lisinopriL 20 MG TABLET PO (08:36)
--- NOTE | 2020-02-14 16:29 | WPDNEURORHBP ---
Subjective Date/time seen: 02/14/20 16:29 Interval history: this 69-year-old gentleman is here with right parieto-occipital intraparenchymal hemorrhage his doing fairly well tolerating the low-dose Eliquis denies any headache nausea vomiting chest pain shortness of breath is left-sided signs are improving quite a bit Review of Systems Review of Systems: All systems reviewed & are unremarkable except as noted in HPI and below Functional Status Ambulation Ability Ability to Ambulate 10 Feet: Independent Ability to Ambulate 50 Feet With 2 Turns: Independent Ability to Ambulate 150 Feet: Independent Ambulation Assistive Devices: Walker, Wheeled Transfers Ability Ability to Transfer In/Out of Chair: Independent Exam Const: General: comfortable and no acute distress HENMT: General nose exam: Normal nares present Mouth: Yes moist mucous membranes Eyes: General: appearance normal, both eyes and all related structures Neck: Neck: supple and no JVD Resp: Effort & Inspection: normal respiratory effort Auscultation: clear to auscultation bilaterally Cardio: Rate: regular rate Rhythm: regular rhythm GI: GI Palp: Yes Soft to palpation Auscultation: normal bowel sounds Skin: General skin exam: normal color and no rashes or lesions noted Neuro: Other: patient is awake and alert with normal speech and language function and improving left-sided neurological deficits Extrem: General: normal to inspection Psych: Mental Status: mental status grossly normal Objective Data Vital Signs Vital Signs: Vital Signs - 24 hr 02/13/20 21:03 02/13/20 22:00 02/14/20 06:00 Temperature 36.4 C 36.2 C L Pulse Rate 64 63 60 Respiratory Rate 16 18 18 Blood Pressure 135/64 121/72 Pulse Oximetry 99 92 02/14/20 08:00 02/14/20 08:09 02/14/20 14:00 Temperature 36.5 C Pulse Rate 60 60 76 Respiratory Rate 16 16 18 Blood Pressure 138/66 Pulse Oximetry 100 Intake/Output Intake/Output: Intake & Output 02/11/20 02/12/20 02/13/20 02/14/20 23:59 23:59 23:59 23:59 Intake Total 720 960 840 480 Balance 720 960 840 480 Meds/Results Medications: Active Medications Generic Name Dose Route Start Last Admin Trade Name Freq PRN Reason Stop Dose Admin Acetaminophen 650 mg 02/04/20 22:43 Tylenol Tablet PO Q4H PRN Fever Or Pain Al Hydrox/Mg Hydrox/Simethicone 30 ml 02/07/20 21:23 02/07/20 21:40 Mylanta PO 30 ml Q6H PRN Administration Indigestion Apixaban 2.5 mg 02/11/20 21:00 02/14/20 08:35 Eliquis PO 2.5 mg Q12HR [facility] Administration Atorvastatin Calcium 40 mg 02/05/20 09:00 02/14/20 08:35 Lipitor PO 40 mg DAILY CON[facility] Administration Colchicine 0.6 mg 02/05/20 09:00 02/14/20 08:35 Colchicine Po PO 0.6 mg DAILY [facility] Administration Febuxostat 40 mg 02/05/20 09:00 02/14/20 08:35 Uloric PO 03/06/20 09:01 40 mg DAILY [facility] Administration Dextrose 1,000 mls @ 100 mls/hr 02/04/20 22:38 Dextrose 5% 1,000 Ml IVPB PRN PRN Hypoglycemia Protocol Ipratropium [place] 0.5 mg 02/05/20 20:00 02/14/20 08:00 Atrovent Neb INHALATION 0.5 mg Q12HRT [facility] Administration Lidocaine 1 patch 02/07/20 09:00 02/14/20 08:35 Lidoderm TRANSDERM 1 patch DAILY [facility] Administration Lisinopril 20 mg 02/05/20 09:00 02/14/20 08:36 Prinivil PO 20 mg DAILY [facility] Administration Metformin HCl 500 mg 02/12/20 08:00 02/14/20 08:35 Glucophage PO 500 mg BIDWM [facility] Administration Senna 8.6 mg 02/08/20 17:30 02/10/20 08:19 Senokot Tablet PO 8.6 mg BID PRN Administration Constipation Vitamin D 2,000 unit 02/05/20 09:00 02/14/20 08:35 Vitamin D PO 2,000 units DAILY [facility] Administration Radiology Results: ITS Impressions Head CT 02/08/20 09:21 IMPRESSION: 1. Hyperdense mass in right occipital lobe, most likely an intraparenchymal hematoma. Labs Labs: Laboratory Results - last 24 hr
[2020-02-15] VITALS (9 sets, daily range): BP systolic 105–133; BP diastolic 58–68; PULSE 54–74; RESP 16–18; TEMP 36–37.1; O2SAT 94–100
[2020-02-15 05:00] LABS: Glucose Point of Care 113 (65-105)
[2020-02-15] MEDS: IPRATROPIUM BR 0.02% INH SOLN 0.5 MG/2.5 ML VIAL INHALATION ×2 (07:56→19:24)
[2020-02-15] MEDS: CHOLECALCIFEROL 1,000 UNIT TABLET 2000 UNITS PO (08:37)
[2020-02-15] MEDS: ATORVASTATIN 40 MG TABLET PO (08:37)
[2020-02-15] MEDS: APIXABAN 2.5 MG TABLET PO ×2 (08:37→20:08)
[2020-02-15] MEDS: metFORMIN HCL 500 MG TABLET PO ×2 (08:37→17:12)
[2020-02-15] MEDS: COLCHICINE 0.6 MG TABLET PO (08:38)
[2020-02-15] MEDS: lisinopriL 20 MG TABLET PO (08:38)
[2020-02-15] MEDS: FEBUXOSTAT 40 MG TABLET PO (08:38)
[2020-02-15] MEDS: LIDOCAINE 5% PATCH 1 PATCH TRANSDERM (08:38)
--- NOTE | 2020-02-15 18:09 | WPDNEURORHBP ---
Subjective Date/time seen: 02/15/20 18:09 Interval history: this 69-year-old gentleman has been here after having had the right-sided intracranial hemorrhage with left-sided visual field defect and left-sided weakness he has improved quite a bit and throughout the course of his hospitalization here he does not have any sign of increased intracranial progression in particular no headache nausea vomiting chest pain shortness of breath fever chills sore throat how discharge planning is for him to go home tomorrow and follow up with the appropriate physicians who were involved with his care Review of Systems Review of Systems: All systems reviewed & are unremarkable except as noted in HPI and below Functional Status Ambulation Ability Ability to Ambulate 10 Feet: Independent Ability to Ambulate 50 Feet With 2 Turns: Independent Ability to Ambulate 150 Feet: Independent Ambulation Assistive Devices: Walker, Wheeled Transfers Ability Ability to Transfer In/Out of Chair: Independent Exam Const: General: comfortable and no acute distress HENMT: General nose exam: Normal nares present Mouth: Yes moist mucous membranes Eyes: General: appearance normal, both eyes and all related structures Neck: Neck: supple and no JVD Resp: Effort & Inspection: normal respiratory effort Auscultation: clear to auscultation bilaterally Cardio: Rate: regular rate Rhythm: regular rhythm GI: GI Palp: Yes Soft to palpation Auscultation: normal bowel sounds Skin: General skin exam: normal color and no rashes or lesions noted Neuro: Other: patient is awake alert well oriented his left-sided weakness has significantly improved and left-sided visual field defect has also improved Extrem: General: normal to inspection Psych: Mental Status: mental status grossly normal Objective Data Vital Signs Vital Signs: Vital Signs - 24 hr 02/14/20 21:45 02/14/20 21:51 02/14/20 22:00 Temperature 36.6 C Pulse Rate 63 63 68 Respiratory Rate 16 16 18 Blood Pressure 135/74 Pulse Oximetry 98 02/15/20 06:00 02/15/20 07:56 02/15/20 07:58 Temperature 37.1 C Pulse Rate 62 54 L 54 L Respiratory Rate 18 16 Blood Pressure 105/68 Pulse Oximetry 98 94 02/15/20 08:01 02/15/20 14:00 Temperature 36.0 C L Pulse Rate 54 L 68 Respiratory Rate 16 18 Blood Pressure 133/66 Pulse Oximetry 100 Intake/Output Intake/Output: Intake & Output 02/12/20 02/13/20 02/14/20 02/15/20 23:59 23:59 23:59 23:59 Intake Total 960 840 720 720 Balance 960 840 720 720 Meds/Results Medications: Active Medications Generic Name Dose Route Start Last Admin Trade Name Freq PRN Reason Stop Dose Admin Acetaminophen 650 mg 02/04/20 22:43 Tylenol Tablet PO Q4H PRN Fever Or Pain Al Hydrox/Mg Hydrox/Simethicone 30 ml 02/07/20 21:23 02/07/20 21:40 Mylanta PO 30 ml Q6H PRN Administration Indigestion Apixaban 2.5 mg 02/11/20 21:00 02/15/20 08:37 Eliquis PO 2.5 mg Q12HR [facility] Administration Atorvastatin Calcium 40 mg 02/05/20 09:00 02/15/20 08:37 Lipitor PO 40 mg DAILY CON[facility] Administration Colchicine 0.6 mg 02/05/20 09:00 02/15/20 08:38 Colchicine Po PO 0.6 mg DAILY CON[facility] Administration Febuxostat 40 mg 02/05/20 09:00 02/15/20 08:38 Uloric PO 03/06/20 09:01 40 mg DAILY [facility] Administration Dextrose 1,000 mls @ 100 mls/hr 02/04/20 22:38 Dextrose 5% 1,000 Ml IVPB PRN PRN Hypoglycemia Protocol Ipratropium [place] 0.5 mg 02/05/20 20:00 02/15/20 07:56 Atrovent Neb INHALATION 0.5 mg Q12HRT [facility] Administration Lidocaine 1 patch 02/07/20 09:00 02/15/20 08:38 Lidoderm TRANSDERM 1 patch DAILY [facility] Administration Lisinopril 20 mg 02/05/20 09:00 02/15/20 08:38 Prinivil PO 20 mg DAILY [facility] Administration Metformin HCl 500 mg 02/12/20 08:00 02/15/20 17:12 Glucophage PO 500 mg BIDWM [facility] Administration Senna 8.6 mg 02/08/20 17:
[2020-02-16 05:19] VITALS: BP 110/59; PULSE 59; RESP 18; TEMP 36.6; O2SAT 99
[2020-02-16 06:51] LABS: Glucose Point of Care 126 (65-105)
[2020-02-16] MEDS: IPRATROPIUM BR 0.02% INH SOLN 0.5 MG/2.5 ML VIAL INHALATION (08:18)
[2020-02-16 08:20] VITALS: PULSE 62; RESP 18; O2SAT 99
[2020-02-16 08:26] VITALS: PULSE 57; RESP 16
[2020-02-16 09:05] VITALS: PULSE 62; RESP 16; O2SAT 99
[2020-02-16] MEDS: ATORVASTATIN 40 MG TABLET PO (09:08)
[2020-02-16] MEDS: APIXABAN 2.5 MG TABLET PO (09:08)
[2020-02-16] MEDS: CHOLECALCIFEROL 1,000 UNIT TABLET 2000 UNITS PO (09:08)
[2020-02-16] MEDS: metFORMIN HCL 500 MG TABLET PO (09:08)
[2020-02-16] MEDS: FEBUXOSTAT 40 MG TABLET PO (09:09)
[2020-02-16] MEDS: COLCHICINE 0.6 MG TABLET PO (09:09)
[2020-02-16] MEDS: lisinopriL 20 MG TABLET PO (09:10)
[2020-02-16] MEDS: LIDOCAINE 5% PATCH 1 PATCH TRANSDERM (10:08)
--- NOTE | 2020-02-16 10:45 | WPDNEURORHBP ---
Subjective Date/time seen: 02/16/20 10:45 69 years old admitted with a right-sided intracranial bleed and left visual field cut left hemiparesis with no evidence of any increase in the symptomatology Review of Systems Review of Systems: Narrative: all systems reviewed and unremarkable except as noted Functional Status Ambulation Ability Ability to Ambulate 10 Feet: Independent Ability to Ambulate 50 Feet With 2 Turns: Independent Ability to Ambulate 150 Feet: Independent Ambulation Assistive Devices: Walker, Wheeled Transfers Ability Ability to Transfer In/Out of Chair: Independent Exam Narrative: Exam Narrative: exam reveals him to be awake alert cooperative in no obvious acute distress head normocephalic ear nose throat examination normal eye is normal with clear cornea neck is supple with no cervical bruits no thyromegaly no lymphadenopathy heart regular with no murmur lungs clear to auscultation with no rhonchi or crepitation abdomen is soft with no organomegaly neurological examination reveals him to be awake alert cooperative with obvious left hemiparesis which is definitely improving mental status is stable Objective Data Vital Signs Vital Signs: Vital Signs - 24 hr 02/15/20 14:00 02/15/20 19:24 02/15/20 19:26 Temperature 36.0 C L Pulse Rate 68 74 Respiratory Rate 18 16 Blood Pressure 133/66 Pulse Oximetry 100 97 02/15/20 19:29 02/15/20 20:51 02/16/20 05:19 Temperature 36.4 C 36.6 C Pulse Rate 70 69 59 L Respiratory Rate 16 18 18 Blood Pressure 109/58 L 110/59 L Pulse Oximetry 99 99 02/16/20 08:20 02/16/20 08:26 Temperature Pulse Rate 62 57 L Respiratory Rate 18 16 Blood Pressure Pulse Oximetry 99 Intake/Output Intake/Output: Intake & Output 02/13/20 02/14/20 02/15/20 02/16/20 23:59 23:59 23:59 23:59 Intake Total 840 720 720 240 Balance 840 720 720 240 Meds/Results Medications: Active Medications Generic Name Dose Route Start Last Admin Trade Name Freq PRN Reason Stop Dose Admin Acetaminophen 650 mg 02/04/20 22:43 Tylenol Tablet PO Q4H PRN Fever Or Pain Al Hydrox/Mg Hydrox/Simethicone 30 ml 02/07/20 21:23 02/07/20 21:40 Mylanta PO 30 ml Q6H PRN Administration Indigestion Apixaban 2.5 mg 02/11/20 21:00 02/16/20 09:08 Eliquis PO 2.5 mg Q12HR [facility] Administration Atorvastatin Calcium 40 mg 02/05/20 09:00 02/16/20 09:08 Lipitor PO 40 mg DAILY [facility] Administration Colchicine 0.6 mg 02/05/20 09:00 02/16/20 09:09 Colchicine Po PO 0.6 mg DAILY [facility] Administration Febuxostat 40 mg 02/05/20 09:00 02/16/20 09:09 Uloric PO 03/06/20 09:01 40 mg DAILY [facility] Administration Dextrose 1,000 mls @ 100 mls/hr 02/04/20 22:38 Dextrose 5% 1,000 Ml IVPB PRN PRN Hypoglycemia Protocol Ipratropium [place] 0.5 mg 02/05/20 20:00 02/16/20 08:18 Atrovent Neb INHALATION 0.5 mg Q12HRT [facility] Administration Lidocaine 1 patch 02/07/20 09:00 02/16/20 10:08 Lidoderm TRANSDERM 1 patch DAILY [facility] Administration Lisinopril 20 mg 02/05/20 09:00 02/16/20 09:10 Prinivil PO 20 mg DAILY [facility] Administration Metformin HCl 500 mg 02/12/20 08:00 02/16/20 09:08 Glucophage PO 500 mg BIDWM [facility] Administration Senna 8.6 mg 02/08/20 17:30 02/10/20 08:19 Senokot Tablet PO 8.6 mg BID PRN Administration Constipation Vitamin D 2,000 unit 02/05/20 09:00 02/16/20 09:08 Vitamin D PO 2,000 units DAILY [facility] Administration Radiology Results: ITS Impressions Head CT 02/08/20 09:21 IMPRESSION: 1. Hyperdense mass in right occipital lobe, most likely an intraparenchymal hematoma. 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
--- NOTE | 2020-02-19 10:44 | PM.DS ---
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: Code(s): M10.9 - Gout, unspecified Status: Acute (2) Chronic obstructive pulmonary disease: Code(s): J44.9 - Chronic obstructive pulmonary disease, unspecified Status: Acute (3) Diabetes mellitus type 2 in nonobese: Code(s): E11.9 - Type 2 diabetes mellitus without complications Status: Acute (4) Intracranial hemorrhage: Code(s): I62.9 - Nontraumatic intracranial hemorrhage, unspecified Status: Acute DS: Summary Time Spent with Patient Time attestation: Total time spent providing and/or coordinating discharge services: 69 years old right-handed male admitted to the acute rehab before [facility] with the diagnosis of right occipital hemorrhage in addition to the comorbid condition of 1. Diabetes mellitus 2. Chronic obstructive pulmonary disease 3. Arthritis and with documentation of 2.1cm right occipital intraparenchymal bleed while on anticoagulation therapy he initially received 2units of fresh frozen plasma with vitamin K 5 mg intravenously at the local hospital and transferred to [facility] where he had the IVC filter placement as he will not be able to anticoagulated because of the underlying blade brain bleed follow-up MRI was requested on resolution of hematoma so that he can be started on the anticoagulation therapy he had the IVC filter which will be removed once he has started back on anticoagulation therapy Exam Narrative: Exam Narrative: discharge examination revealed him to be awake alert with left visual field cut and left hemiparesis he was able to ambulate independently with a wheeled walker up to 150ft and also including 2 turns he was also able to transfer in and out of chair independently examination revealed him to be awake alert cooperative in no obvious distress head normocephalic with no cranial bruit ear nose throat exam normal neck supple with no cervical bruits or thyromegaly no lymphadenopathy heart regular with no murmur lungs clear abdomen soft neuro exam consistent with the left visual field cut and left hemiparesis. at the time of discharge patient was independent in eating oral hygiene toileting bathing upper body dressing lower body dressing footwear rolling in bed sitting to lying lying to sit sit to stand chair transfer toilet transfer car transfer walking 10ft walking 50ft with turns walking 150ft walking 10ft on uneven surfaces Jain step 40 steps 12 steps and picking up objects wheelchair was not applicable he was discharged to his home with Home Health instruction and he had no fall or injuries during this entire hospitalization Discharge Plan Discharge Attending physician on discharge: Ney Mcduffie Discharging Clinician: Ney Mcduffie Anticipated Discharge Date/Time: 02/16/20 18:16 Patient Disposition: Home Health Service Activity: may shower and no driving Diet: diabetic Discharge Instructions: Per Care Coordination: Home Health services have been arranged through [facility]. [facility] can be contacted at [phone]. Patient Instructions: Antibiotic Form, Pain Management in Older Adults (DC), Self Care Measures After a Stroke (DC), Stroke (DC), Type 2 Diabetes in the Older Adult (DC) Stand Alone Forms: General Discharge Information Follow-up/Referrals: Dr Bijan Sorensen [Other] (Follow up with assisted living nursing director Dr Bijan Sorensen at [place] for management of blood clots in legs. 3 major unprovoked clotting events.) Deja Tsai MD PhD [Other] (Appt 03/16/20 at 2:00 PM Dept [facility], Center [facility]) Dr Bijan Sorensen [Other] (Patient should be refered by his PCP to Dr. bijan Sorensen,a hematolgist at [place] who specializes in VTE) Alma,Refugio Altman MD [Primary Care Provider] - (03/11/2020,09:20 A
== END 2020-02-16 13:30 | disposition home health service (06) | DRG 57 ==
PROVIDERS: Admitting Provider Psychiatry & Neurology Neurology; PCP Internal Medicine; Visit Provider Psychiatry & Neurology Neurology
DX: I69.254 Hemiplegia and hemiparesis following other nontraumatic intracranial hemorrhage affecting left non-dominant side (principal); E87.1 Hypo-osmolality and hyponatremia; D68.59 Other primary thrombophilia; Z68.41 Body mass index [BMI] 40.0-44.9, adult; I69.298 Other sequelae of other nontraumatic intracranial hemorrhage; H53.8 Other visual disturbances; D64.9 Anemia, unspecified; E11.65 Type 2 diabetes mellitus with hyperglycemia; E78.5 Hyperlipidemia, unspecified; E66.01 Morbid (severe) obesity due to excess calories; I11.9 Hypertensive heart disease without heart failure; J44.9 Chronic obstructive pulmonary disease, unspecified; M17.11 Unilateral primary osteoarthritis, right knee; M10.9 Gout, unspecified; Z86.718 Personal history of other venous thrombosis and embolism; Z86.711 Personal history of pulmonary embolism; Z79.01 Long term (current) use of anticoagulants; Z87.891 Personal history of nicotine dependence; Z79.4 Long term (current) use of insulin
CPT/HCPCS: 36415; 70450; 80048; 80061; 83036; 85025; 92507; 92523; 94640; 97110; 97116; 97129; 97130; 97162; 97166; 97530; 97535; A9270